=== PATIENT | male | born 1970 | race Caucasian/White ===

== ENCOUNTER 2016-05-12 11:53 | Emergency (ER) | payer OTHER ==
[2016-05-12 12:29] VITALS: BP 132/75
[2016-05-12] MEDS ORDERED: DIPH/PERTUSS(ACELL)/TETANUS VAC/PF 0.5 ML SYR (>=10YO) IM ONE (12:41)
--- NOTE | 2016-05-12 12:44 | ER Document Report ---
ED Medical Screen (RME) - General Stated Complaint: CUT FINGER Mode of Arrival: Ambulatory Information source: Patient Notes: 45 y/o M presents to ED c/o left index finger laceration. States was cutting meat last night when he accidentally cut his finger. States unknown last tetanus vaccination. No active bleeding. I have greeted and performed a rapid initial assessment of this patient. A comprehensive ED assessment and evaluation of the patient, analysis of test results and completion of the medical decision making process will be conducted by additional ED providers. TRAVEL OUTSIDE OF THE [place] IN LAST 30 DAYS: No - Related Data Allergies/Adverse Reactions: No Known Allergies Allergy (Verified 05/12/16 12:42) Past Medical History - Social History Frequency of alcohol use: Occasional Drug Abuse: None Renal/ Medical History: Denies: Hx Peritoneal Dialysis Physical Exam - Vital signs Vitals: Temp Pulse Resp BP Pulse Ox 98.0 F 84 18 132/75 H 97 05/12/16 12:27 05/12/16 12:05/12/16 12:05/12/16 12:27 05/12/16 12:27 - General General appearance: Appears well, Alert In distress: None Course - Vital Signs Vital signs: Temp Pulse Resp BP Pulse Ox 98.0 F 84 18 132/75 H 97 05/12/16 12:27 05/12/16 12:27 05/12/16 12:27 05/12/16 12:27 05/12/16 12:27
--- NOTE | 2016-05-12 13:14 | ER Document Report ---
ED Hand/Wrist Injury - General Chief Complaint: Laceration Stated Complaint: CUT FINGER Time seen by provider: 13:09 Mode of Arrival: Ambulatory Information source: Patient Notes: 45-year-old male presents to ED for left index finger avulsion to the tip of his finger. Taking was cutting meat last night when he accidentally cut his finger. He states he had not had a tetanus shot in a long time one was given in [facility]. He states he would not come but his drove him in here TRAVEL OUTSIDE OF THE [place] IN LAST 30 DAYS: No - HPI Injury to: Index finger Onset: Yesterday Where: Home, Indoors Timing: Still present Quality of pain: Sharp Severity: Moderate Pain Level: 4 Context: Other - Avulsion to tip of left index finger - Related Data Allergies/Adverse Reactions: No Known Allergies Allergy (Verified 05/12/16 12:42) Past Medical History - General Information source: Patient - Social History Smoking Status: Never Smoker Frequency of alcohol use: Occasional Drug Abuse: None Lives with: Family Family History: Arthritis, CAD, DM, Hyperlipidemia, Hypertension, Malignancy Patient has suicidal ideation: No Patient has homicidal ideation: No - Past Medical History Cardiac Medical History: Reports: Hx Hypertension Pulmonary Medical History: Reports: None EENT Medical History: Reports: None Neurological Medical History: Reports: None Endocrine Medical History: Reports: None Renal/ Medical History: Reports: Hx Kidney Stones Malignancy Medical History: Reports None GI Medical History: Reports: Hx Colonoscopy - With second colonoscopy to stop bleeding after a polypectomy Musculoskeltal Medical History: Reports Hx Arthritis Skin Medical History: Reports None, Reports Other - rosacea Psychiatric Medical History: Reports: None Traumatic Medical History: Reports: None Infectious Medical History: Reports: None Surgical Hx: Negative Past Surgical History: Reports: None - Immunizations Immunizations up to date: Yes Hx Diphtheria, Pertussis, Tetanus Vaccination: Yes Review of Systems - Review of Systems Constitutional: No symptoms reported EENT: No symptoms reported Cardiovascular: No symptoms reported Respiratory: No symptoms reported Gastrointestinal: No symptoms reported Genitourinary: No symptoms reported Male Genitourinary: No symptoms reported Musculoskeletal: No symptoms reported Skin: Other - Avulsion to the tip of the left index finger for a superficial Hematologic/Lymphatic: No symptoms reported Neurological/Psychological: No symptoms reported Physical Exam - Vital signs Vitals: Temp Pulse Resp BP Pulse Ox 98.0 F 84 18 132/75 H 97 05/12/16 12:27 05/12/16 12:27 05/12/16 12:27 05/12/16 12:27 05/12/16 12:27 Interpretation: Normal - General General appearance: Appears well, Alert - HEENT Head: Normocephalic, Atraumatic Eyes: Normal Pupils: PERRL - Respiratory Respiratory status: No respiratory distress Chest status: Nontender Breath sounds: Normal Chest palpation: Normal - Cardiovascular Rhythm: Regular Heart sounds: Normal auscultation Murmur: No - Abdominal Inspection: Normal Distension: No distension Bowel sounds: Normal Tenderness: Nontender Organomegaly: No organomegaly - Back Back: Normal, Nontender - Extremities General upper extremity: Normal inspection, Nontender, Normal color, Normal ROM , Normal temperature General lower extremity: Normal inspection, Nontender, Normal color, Normal ROM , Normal temperature, Normal weight bearing. No: Ben's sign - Neurological Neuro grossly intact: Yes Cognition: Normal Orientation: AAOx4 Bryon Coma Scale Eye Opening: Spontaneous Bryon Coma Scale Verbal: Oriented Bryon Coma Scale Motor: Obeys Commands Bryon Coma Scale Total: 15 Speech: Normal Motor strength normal: LUE, RUE, LLE, RLE Sensory: Normal - Psychological Associated symptoms: Normal affect, Normal mood - Skin Skin Temperature: Warm Skin Moisture: Dry Skin Color: Normal Location of irregularity: Extremities - Superficial avulsion injury to tip of left index finger Irregularity with: Tenderness Course - Re-evaluation Re-evalutation: 05/12/16 13:14 Finger cleaned well with soap and water and run underwater for several minutes. The finger was then patted dry and bacitracin applied with a dressing and a protective finger splint. Patient states he is on Ultram and ibuprofen and Neurontin and does not need pain medicine at this time. - Vital Signs Vital signs: Temp Pulse Resp BP Pulse Ox 98.0 F 84 18 132/75 H 97 05/12/16 12:27 05/12/16 12:27 05/12/16 12:27 05/12/16 12:27 05/12/16 12:27 Procedures - Immobilization Left Finger 2nd digit Time completed: 13:21 Immobilizer type: Finger protection Performed by: PCT Post-Proc Neuro Vasc Exam: Normal Alignment checked and good: Yes Discharge - Discharge Clinical Impression: Avulsion of skin of finger Qualifiers: Encounter type: initial encounter Qualified Code(s): S61.209A - Unspecified open wound of unspecified finger without damage to nail, initial encounter Condition: Stable Disposition: HOME, SELF-CARE Instructions: Family Physicians / Practices Additional Instructions: Avulsion Injury You have an avulsion injury -- a loss of skin which can't be helped by suturing. When large, these injuries can require skin grafting. Smaller defects or shallow avulsions usually heal well with dressings. Keep the dressing clean and dry. If the bandage becomes wet, remove it, blot the area dry, and apply a fresh dressing. Change the dressings every day. Complete healing may take anywhere from 10 days to two months. The healing time depends on the size and depth of the avulsion and on the amount of crushing of underlying tissues. Re-examination by the physician is often necessary. If any signs of infection occur (swelling, redness, increasing tenderness, red streaks, profuse purulent drainage from the avulsion, tender lumps in the armpit or groin above the avulsion, or fever), see your doctor immediately. SOAP CLEANSING: Gently wash the wound daily using a mild soap (like Ivory, Phisoderm, Neutrogena). Use warm water, rubbing gently until all debris, ooze, and crusting have been washed from the wound. Allow to dry briefly (about 10 minutes) after cleaning. Repeat this cleansing at least three times a day for the first two days and then once or twice a day. ANTIBIOTIC OINTMENT PROTECTION: Your wounds are such that dressing them is not practical or optional. After cleansing, you should apply a thin coating of antibiotic ointment ( Bacitracin, not Neosporin) to the wounds at least three times daily. This lessens infection risk, and may decrease the amount of scarring. Use a q-tip or dull butter knife, not your finger, to apply this ointment. Any debris or ooze which builds up in the ointment should be gently rubbed off with a sterile gauze pad. Harder crusting may need to be gently scrubbed off with a clean wash cloth with soap and warm water, perhaps applying a warm, wet wash cloth to the wound for ten minutes first. Development of redness, severe itching, or blistering may mean allergy to the ointment. See the doctor. TETANUS IMMUNIZATION GIVEN: You have been given an immunization against tetanus. Please record this in your records. In general, a booster is needed only once every 10 years. The tetanus shot protects against tetanus or "lockjaw," which is a complication of certain wound infections (the tetanus shot cannot protect against the actual infection). The immunization site may become warm and red due to local reaction. If this occurs, apply warm compresses and take aspirin or ibuprofen to reduce inflammation and discomfort. Return for evaluation if the reaction becomes severe. FOLLOW-UP CARE: If you have been referred to a physician for follow-up care, call the physician s office for an appointment as you were instructed or within the next two days. If you experience worsening or a significant change in your symptoms, notify the physician immediately or return to the Emergency Department at any time for re-evaluation. Forms: Elevated Blood Pressure
== END 2016-05-12 13:27 | disposition home or self-care (01) ==
LOC: ER 11:53
DX: S61.211A Laceration without foreign body of left index finger without damage to nail, initial encounter (principal); W45.8XXA Other foreign body or object entering through skin, initial encounter; Y93.G1 Activity, food preparation and clean up; Y92.009 Unspecified place in unspecified non-institutional (private) residence as the place of occurrence of the external cause; Z23 Encounter for immunization; I10 Essential (primary) hypertension
CPT/HCPCS: 90471; 90715; 99282

== ENCOUNTER 2016-06-07 15:39 | Emergency (ER) | payer OTHER ==
[2016-06-07] MEDS ORDERED: NITROGLYCERIN/D5W 50 MG/250 ML RTUINJ IV ONE (16:01)
[2016-06-07] MEDS ORDERED: ASPIRIN 81 MG TABLET, CHEWABLE PO ONE (16:08)
[2016-06-07] MEDS ORDERED: NITROGLYCERIN/D5W 250 ML IV PRN (16:08)
[2016-06-07 16:18] LABS: ABSOLUTE BASOPHILS # (AUTO) 0.1 10^3/uL (0.0-0.2); ABSOLUTE EOSINOPHILS # (AUTO) 0.4 10^3/uL (0.0-0.6); ABSOLUTE LYMPHOCYTES (AUTO) 2.8 10^3/uL (0.5-4.7); ABSOLUTE NEUT (AUTO) 7.2 10^3/uL (1.7-8.2); BASOPHILS % (AUTO) 0.7 % (0-2); EOSINOPHILS % (AUTO) 3.5 % (0-6); HEMATOCRIT 48.9 % (37.9-51.0); HEMOGLOBIN 16.5 g/dL (13.5-17.0); HGB HCT DIFFERENCE 0.6; LYMPHOCYTES % (AUTO) 24.7 % (13-45); MEAN CORPUSCULAR HEMOGLOBIN 29.9 pg (27.0-33.4); MEAN CORPUSCULAR HGB CONC 33.8 g/dL (32.0-36.0); MEAN CORPUSCULAR VOLUME 89 fl (80-97); MONOCYTES % (AUTO) 8.6 % (3-13); RED BLOOD COUNT 5.53 10^6/uL (4.35-5.55); RED CELL DISTRIBUTION WIDTH 13.2 % (11.5-14.0); SEGMENTED NEUTROPHILS % (AUTO) 62.5 % (42-78); WHITE BLOOD COUNT 11.4 10^3/uL (4.0-10.5)
[2016-06-07] MEDS ORDERED: HEPARIN SOD (PORCINE) 1,000 UNIT/ML 10 ML VIAL IV ONE (16:21)
[2016-06-07] MEDS ORDERED: HEPARIN SODIUM,PORCINE/D5W 250 ML IV PRN (16:21)
[2016-06-07] MEDS ORDERED: METOPROLOL TARTRATE PF/INJ 5 MG/5 ML SDV IV ONE (16:24)
[2016-06-07 16:26] LABS: PROTHROMBIN TIME 12.4 SEC (11.4-15.4)
--- NOTE | 2016-06-07 16:48 | ER Document Report ---
ED Cardiac - General Chief Complaint: Chest Pain Stated Complaint: CHEST PAIN Time seen by provider: 15:50 Mode of Arrival: Ambulatory Information source: Patient, Relative - Patient's accompanied by his Notes: This is a 45-year-old man with a history of hypertension in the past (currently off blood pressure medicine) who presents to the emergency room with retrosternal chest pressure radiating down the left arm. The patient states the pain first started at 4 AM waking the medicine. He normally wakes at 5 AM. He states that the pain had resolved by the time he left for work (in [employer]) at approximately 6 PM. He states while he was in [employer] at work, he the pain started again at 9 AM. The pain seems to come and go. He left work early today and on the drive home the pain got gradually worse. Patient states that by the time he got to [place], his pain was 8 out of 10. The patient's reports that he appeared pale, diaphoretic on arrival home. The patient came immediately to the ER. The patient states that the pain gradually eased up by itself and was 3 out of 10 at the time of the first EKG. TRAVEL OUTSIDE OF THE [place] IN LAST 30 DAYS: No - HPI Patient complains to provider of: Chest pain Use of: denies: Alcohol, Amphetamines, Bath salts, Caffeine, Cocaine, Decongestants, Other Was the onset of pain: Sudden Is the pain a: New problem Chest pain location: Substernal Quality of pain: Dull Chest pain radiation location: Left arm Severity now: Mild Severity at worst: Severe Pain level currently: 1 Chest pain precipitating factors: Mental Exertion/Stress Cardiac risk factors: Hypertension Positive cardiac history: No Associated symptoms: Diaphoresis, Shortness of breath Exacerbated by: Emotional stress Relieved by: Rest Similar symptoms previously: No Recently seen / treated by doctor: No - Related Data Allergies/Adverse Reactions: No Known Allergies Allergy (Verified 05/12/16 12:42) Past Medical History - General Information source: Patient - Social History Smoking Status: Never Smoker Cigarette use (# per day): No Chew tobacco use (# tins/day): No Smoking Education Provided: No Frequency of alcohol use: None Drug Abuse: None Lives with: Family Family History: Arthritis, CAD, DM, Hyperlipidemia, Hypertension, Malignancy Patient has suicidal ideation: No Patient has homicidal ideation: No - Past Medical History Cardiac Medical History: Reports: Hx Hypertension Pulmonary Medical History: Reports: None EENT Medical History: Reports: None Neurological Medical History: Reports: None Endocrine Medical History: Reports: None Renal/ Medical History: Reports: Hx Kidney Stones. Denies: Hx Peritoneal Dialysis Malignancy Medical History: Reports None GI Medical History: Reports: Hx Colonoscopy - With second colonoscopy to stop bleeding after a polypectomy Musculoskeltal Medical History: Reports Hx Arthritis Skin Medical History: Reports None Psychiatric Medical History: Reports: None Traumatic Medical History: Reports: None Infectious Medical History: Reports: None Surgical Hx: Negative - Immunizations Immunizations up to date: Yes Hx Diphtheria, Pertussis, Tetanus Vaccination: Yes Review of Systems - Review of Systems Constitutional: denies: Chills, Fever EENT: No symptoms reported Cardiovascular: See HPI Respiratory: No symptoms reported Gastrointestinal: No symptoms reported Genitourinary: No symptoms reported Male Genitourinary: No symptoms reported Musculoskeletal: No symptoms reported Skin: No symptoms reported Hematologic/Lymphatic: No symptoms reported Neurological/Psychological: No symptoms reported Physical Exam - Vital signs Vitals: Resp Pulse Ox 15 100 06/07/16 15:55 06/07/16 15:55 Notes: Physical exam: GENERAL: 45-year-old man, alert and oriented 3, complains of pain that is 1 out of 10 at this point. HEAD: Atraumatic, normocephalic. EYES: Pupils equal round and reactive to light, extraocular movements intact, sclera anicteric, conjunctiva are normal. ENT: TMs normal, nares patent, oropharynx clear without exudates. Moist mucous membranes. NECK: Normal range of motion, supple without lymphadenopathy or JVD. LUNGS: Breath sounds clear to auscultation bilaterally and equal. No wheezes rales or rhonchi. HEART: Regular rate and rhythm without murmurs, rubs or gallops. ABDOMEN: Soft, normoactive bowel sounds. No tenderness to palpation. No guarding, no rebound. No masses appreciated. EXTREMITIES: Normal range of motion, no pitting or edema. No clubbing or cyanosis. NEUROLOGICAL: Cranial nerves II through XII grossly intact. Normal speech, normal gait. PSYCH: Normal mood, normal affect. SKIN: Warm, Dry, normal turgor, no rashes or lesions noted. Course - Re-evaluation Re-evalutation: 1600: Cardiac and actions connected and vitamin. The EKG shows sinus rhythm at a ventricular rate of 94. There is ST elevations in aVR and ST depressions in V3, V4, V5, V6. The patient does not meet STEMI criteria at this point but this EKG is concerning for a very proximal LAD lesion or potentially left main lesion. I discussed case with Dr. Mcgill who was willing to accept the patient. The plan is for air travel to [place]. Patient is placed on IV nitroglycerin for a blood pressure of 175/111 He was given aspirin IV metoprolol given IV heparin started I have discussed the issues with the patient and his were are agreeable to transfer. Repeat EKG at 1617 shows normal sinus rhythm with a ventricular rate of 91, there seems to be progression of disease with worsening ST depression anteriorly , hyperacute T waves in V2 16:46 - Vital Signs Vital signs: Temp Pulse Resp BP Pulse Ox 19 136/88 H 98 06/07/16 17:06 06/07/16 17:06 06/07/16 17:06 - Laboratory Result Diagrams: 06/07/16 16:05 06/07/16 16:50 Laboratory results interpreted by me: 06/07/16 06/07/16 16:05 16:50 WBC 11.4 H Creatine Kinase 184 H - Diagnostic Test Radiology reviewed: Image reviewed, Reports reviewed Critical Care Note - Critical Care Note Total time excluding time spent on procedures (mins): 60 Discharge - Discharge Clinical Impression: acute [facility] Condition: Serious Disposition: [facility] Referrals: ZACK JULIAN MD [Primary Care Provider] - Follow up as needed
[2016-06-07 17:22] LABS: ALANINE AMINOTRANSFERASE 49 U/L (21-72); ALBUMIN 4.3 g/dL (3.5-5.0); ALKALINE PHOSPHATASE 79 U/L (38-126); ANION GAP 10 (5-19); ASPARTATE AMINO TRANSFERASE 30 U/L (17-59); BILIRUBIN,TOTAL 0.6 mg/dL (0.2-1.3); BLOOD UREA NITROGEN 20 mg/dL (7-20); CALCIUM 9.7 mg/dL (8.4-10.2); CARBON DIOXIDE 29 mmol/L (22-30); CHLORIDE 102 mmol/L (98-107); CREATINE KINASE 184 U/L (55-170); CREATININE RESULT 1.05 mg/dL (0.52-1.25); GLUCOSE 104 mg/dL (75-110); POTASSIUM 4.5 mmol/L (3.6-5.0); SODIUM 140.8 mmol/L (137-145); TOTAL PROTEIN 7.8 g/dL (6.3-8.2)
[2016-06-07 17:25] VITALS: BP 136/88
[2016-06-07 17:34] LABS: CREATINE KINASE MB 2.16 ng/mL (<4.55)
[2016-06-07 17:40] LABS: TROPONIN I 0.214 ng/mL
--- NOTE | 2016-06-07 18:03 | EKG REPORT ---
SEVERITY:- NORMAL ECG - SINUS RHYTHM : Confirmed by: Ángela Wilson 07-Jun-2016 18:01:13
--- NOTE | 2016-06-07 18:03 | EKG REPORT ---
SEVERITY:- ABNORMAL ECG - SINUS RHYTHM REPOL ABNRM SUGGESTS ISCHEMIA, DIFFUSE LEADS : Confirmed by: Ángela Wilson 07-Jun-2016 18:01:20
--- NOTE | 2016-06-07 18:03 | EKG REPORT ---
SEVERITY:- ABNORMAL ECG - SINUS RHYTHM NONSPECIFIC REPOL ABNORMALITY, DIFFUSE LEADS : Confirmed by: Ángela Wilson 07-Jun-2016 18:01:28
== END 2016-06-07 17:31 | disposition short-term general hospital (02) ==
LOC: ER 15:39
DX: I21.3 ST elevation (STEMI) myocardial infarction of unspecified site (principal); I10 Essential (primary) hypertension; R07.89 Other chest pain; R61 Generalized hyperhidrosis; R06.02 Shortness of breath; Z82.49 Family history of ischemic heart disease and other diseases of the circulatory system
CPT/HCPCS: 93005; 99291; 96374; 96375; 36415; 82553; 82550; 85025; 85610; 85730; 80053; 84484; 71010; 93010; J1644; J3490

== ENCOUNTER 2016-10-07 11:08 | Emergency (ER) | payer OTHER ==
--- NOTE | 2016-10-07 13:08 | ER Document Report ---
ED Medical Screen (RME) - General Chief Complaint: Productive Cough Stated Complaint: SPITTING UP BLOOD Time Seen by Provider: 10/07/16 12:59 Mode of Arrival: Ambulatory Information source: Patient TRAVEL OUTSIDE OF THE [place] IN LAST 30 DAYS: No - HPI Patient complains to provider of: Hemoptysis Onset: This morning Notes: 10/07/16 13:06 46-year-old male with a history of hypertension and GA with stent placement 2 back in May 2016, currently on [employer], recent trip to [employer] in [place], developed cold-like symptoms over the last few days, with fever, yellowish colored phlegm, this morning he started to notice bright red blood in his phlegm as well, he denies any chest pain or shortness of breath, he has been taking Tylenol Cold and flu, DayQuil and Robitussin for his symptoms, also has a history of vasovagal syncope and had a near syncopal episode in the emergency waiting room when he saw his own blood - Related Data Allergies/Adverse Reactions: No Known Allergies Allergy (Verified 10/07/16 11:13) Past Medical History - Past Medical History Cardiac Medical History: Reports: Hx Hypertension Renal/ Medical History: Reports: Hx Kidney Stones. Denies: Hx Peritoneal Dialysis GI Medical History: Reports: Hx Colonoscopy - With second colonoscopy to stop bleeding after a polypectomy Musculoskeltal Medical History: Reports Hx Arthritis - Immunizations Immunizations up to date: Yes Hx Diphtheria, Pertussis, Tetanus Vaccination: Yes Physical Exam - Vital signs Vitals: Temp Pulse Resp BP Pulse Ox 98.3 F 76 18 134/88 H 96 10/07/16 11:13 10/07/16 11:13 10/07/16 11:13 10/07/16 11:13 10/07/16 11:13 Course - Vital Signs Vital signs: Temp Pulse Resp BP Pulse Ox 98.3 F 76 18 134/88 H 96 10/07/16 11:13 10/07/16 11:13 10/07/16 11:13 10/07/16 11:13 10/07/16 11:13
[2016-10-07 13:25] LABS: ABSOLUTE EOSINOPHILS # (AUTO) 0.3 10^3/uL (0.0-0.6); ABSOLUTE LYMPHOCYTES (AUTO) 1.4 10^3/uL (0.5-4.7); ABSOLUTE MONOCYTES (AUTO) 1.4 10^3/uL (0.1-1.4); ABSOLUTE NEUT (AUTO) 11.6 10^3/uL (1.7-8.2); BASOPHILS % (AUTO) 0.3 % (0-2); EOSINOPHILS % (AUTO) 1.7 % (0-6); HEMATOCRIT 48.4 % (37.9-51.0); HEMOGLOBIN 16.1 g/dL (13.5-17.0); HGB HCT DIFFERENCE -0.1; LYMPHOCYTES % (AUTO) 9.7 % (13-45); MEAN CORPUSCULAR HEMOGLOBIN 29.6 pg (27.0-33.4); MEAN CORPUSCULAR HGB CONC 33.2 g/dL (32.0-36.0); MEAN CORPUSCULAR VOLUME 89 fl (80-97); MONOCYTES % (AUTO) 9.2 % (3-13); RED BLOOD COUNT 5.43 10^6/uL (4.35-5.55); RED CELL DISTRIBUTION WIDTH 13.5 % (11.5-14.0); SEGMENTED NEUTROPHILS % (AUTO) 79.1 % (42-78); WHITE BLOOD COUNT 14.7 10^3/uL (4.0-10.5)
[2016-10-07 13:32] LABS: PARTIAL THROMBOPLASTIN TIME 26.1 SEC (23.5-35.8); PROTHROMBIN TIME 12.4 SEC (11.4-15.4)
--- NOTE | 2016-10-07 13:33 | RADIOLOGY REPORT (SQ) ---
EXAM DESCRIPTION: CHEST PA/LAT COMPLETED DATE/TIME: 10/07/2016 1:26 pm REASON FOR STUDY: cough COMPARISON: 06/07/2016. EXAM PARAMETERS: NUMBER OF VIEWS: two views TECHNIQUE: Digital Frontal and Lateral radiographic views of the chest acquired. RADIATION DOSE: NA LIMITATIONS: none FINDINGS: LUNGS AND PLEURA: No opacities, masses or pneumothorax. No pleural effusion. MEDIASTINUM AND HILAR STRUCTURES: No masses or contour abnormalities. HEART AND VASCULAR STRUCTURES: Heart normal size. No evidence for failure. BONES: No acute findings. HARDWARE: None in the chest. OTHER: No other significant finding. IMPRESSION: NO SIGNIFICANT RADIOGRAPHIC FINDING IN THE CHEST. TECHNICAL DOCUMENTATION: JOB ID: [id number] [employer] All Rights Reserved
[2016-10-07 13:54] LABS: ALANINE AMINOTRANSFERASE 228 U/L (21-72); ALKALINE PHOSPHATASE 139 U/L (38-126); ANION GAP 11 (5-19); ASPARTATE AMINO TRANSFERASE 99 U/L (17-59); BILIRUBIN,DIRECT 0.4 mg/dL (0.0-0.4); BILIRUBIN,TOTAL 1.6 mg/dL (0.2-1.3); BLOOD UREA NITROGEN 9 mg/dL (7-20); CALCIUM 9.5 mg/dL (8.4-10.2); CARBON DIOXIDE 28 mmol/L (22-30); CHLORIDE 103 mmol/L (98-107); CREATININE RESULT 0.82 mg/dL (0.52-1.25); GLUCOSE 112 mg/dL (75-110); TOTAL PROTEIN 7.3 g/dL (6.3-8.2)
--- NOTE | 2016-10-07 14:21 | ER Document Report ---
ED General <VIVIANA JO - Last Filed: 10/07/16 14:22> - General Mode of Arrival: Ambulatory Information source: Patient TRAVEL OUTSIDE OF THE [place] IN LAST 30 DAYS: No - HPI Patient complains to provider of: Hemoptysis Onset: This morning Associated symptoms: Other - see notes above <CHRIS GARCIA - Last Filed: 10/07/16 14:38> - General Chief Complaint: Productive Cough Stated Complaint: SPITTING UP BLOOD Time Seen by Provider: 10/07/16 12:59 Notes: 46 year old male with history of hypertension presents to the ED complaining of hemoptysis and nose bleed that started this morning. Patient reports that he is recovering from cold-like symptoms and has a productive cough with yellow sputum for several days and fever that started last night. Patient began coughing up bright red blood earlier this morning. Patient denies chest pain or shortness of breath. Patient has been using DayQuil and Robitussum for the last several days. Patient is also on Effient. Patient is taking Metoprolol, atorvastatin, and gabapentin. (CHRIS GARCIA) - Related Data Allergies/Adverse Reactions: No Known Allergies Allergy (Verified 10/07/16 11:13) Past Medical History - General Information source: Patient - Social History Smoking Status: Unknown if Ever Smoked Family History: Arthritis, CAD, DM, Hyperlipidemia, Hypertension, Malignancy Patient has suicidal ideation: No Patient has homicidal ideation: No - Past Medical History Cardiac Medical History: Reports: Hx Heart Attack, Hx Hypertension Renal/ Medical History: Reports: Hx Kidney Stones. Denies: Hx Peritoneal Dialysis GI Medical History: Reports: Hx Colonoscopy - With second colonoscopy to stop bleeding after a polypectomy Musculoskeltal Medical History: Reports Hx Arthritis Past Surgical History: Reports: Hx Cardiac Catheterization, Hx Coronary Stent - may 2016 x2, Hx Vascular Surgery - cardiac stent x2 - Immunizations Immunizations up to date: Yes Hx Diphtheria, Pertussis, Tetanus Vaccination: Yes <CHRIS GARCIA - Last Filed: 10/07/16 14:38> Review of Systems - Review of Systems Constitutional: See HPI, Fever - last night EENT: See HPI, Other - nose bleed Cardiovascular: No symptoms reported. denies: Chest pain Respiratory: See HPI, Cough, Hemoptysis, Sputum - yellow. denies: Short of breath Gastrointestinal: No symptoms reported Genitourinary: No symptoms reported Male Genitourinary: No symptoms reported Musculoskeletal: No symptoms reported Skin: No symptoms reported Hematologic/Lymphatic: No symptoms reported Neurological/Psychological: No symptoms reported -: Yes All other systems reviewed and negative <CHRIS GARCIA - Last Filed: 10/07/16 14:38> Physical Exam - General General appearance: Alert In distress: None - HEENT Head: Normocephalic, Atraumatic Eyes: Normal Extraocular movements intact: Yes Pupils: PERRL Nasal: Other - There is a red area indicative of a previous bleed to the inside of the left nasal septum. No active bleeding. Right nostril is mildly hyperemic. Nasal congestion. - Respiratory Respiratory status: No respiratory distress Breath sounds: Nonproductive cough, Rhonchi - minimal - Cardiovascular Rhythm: Regular Heart sounds: Normal auscultation - Abdominal Inspection: Normal - Back Back: Normal - Extremities General upper extremity: Normal inspection, Normal ROM General lower extremity: Normal inspection, Normal ROM - Neurological Neuro grossly intact: Yes - Psychological Associated symptoms: Normal affect, Normal mood - Skin Skin Temperature: Warm Skin Moisture: Dry Skin Color: Normal <CHRIS GARCIA - Last Filed: 10/07/16 14:38> - Vital signs Vitals: Temp Pulse Resp BP Pulse Ox 98.3 F 76 18 134/88 H 96 10/07/16 11:13 10/07/16 11:13 10/07/16 11:13 10/07/16 11:13 10/07/16 11:13 Course - Laboratory Result Diagrams: 10/07/16 13:10 10/07/16 13:10 <VIVIANA JO - Last Filed: 10/07/16 14:22> - Laboratory Result Diagrams: 10/07/16 13:10 10/07/16 13:10 <RADHACHRIS - Last Filed: 10/07/16 14:38> - Vital Signs Vital signs: Temp Pulse Resp BP Pulse Ox 98.3 F 76 18 134/88 H 96 10/07/16 11:13 10/07/16 11:13 10/07/16 11:13 10/07/16 11:13 10/07/16 11:13 - Laboratory Laboratory results interpreted by me: 10/07/16 10/07/16 13:10 13:10 WBC 14.7 H Seg Neutrophils % 79.1 H Lymphocytes % 9.7 L Absolute Neutrophils 11.6 H Glucose 112 H Total Bilirubin 1.6 H AST 99 H ALT 228 H Alkaline Phosphatase 139 H Discharge <VIVIANA JO - Last Filed: 10/07/16 14:22> <CHRIS GARCIA - Last Filed: 10/07/16 14:38> - Discharge Clinical Impression: Bronchitis, Anterior epistaxis, Hemoptysis, Elevated liver enzymes Leukocytosis Qualifiers: Leukocytosis type: unspecified Qualified Code(s): D72.829 - Elevated white blood cell count, unspecified Additional Instructions: Bronchitis You have acute bronchitis. This disease is an infection or inflammation of the air passageways in your lungs. Symptoms usually include cough, low grade fever, shortness of breath, and wheezing. The cough usually persists for a couple of weeks. Most cases of bronchitis get better without antibiotics. We prescribe antibiotics when we believe bacteria are damaging your airways, or if there's high risk the bronchitis will worsen into pneumonia. Increase your fluid intake. A cool mist humidifier may make your lungs more comfortable. An expectorant (cough medicine that loosens phlegm) can help. If you smoke, STOP!!! Recovery from bronchitis can be somewhat slow, but you should see improvement within a day or two. Repeated episodes of bronchitis may result in lung damage -- for example, chronic bronchitis, recurrent pneumonias, or emphysema. Call the doctor if you develop increasing fever, shortness of breath, chest pain, bloody sputum, or otherwise worsen. If you have not improved at all after several days, contact the physician. Hemoptysis: Hemoptysis (coughing up blood) can occur with many different diseases. Most commonly, it's due to an infection such as bronchitis. Although alarming, the presence of blood in the phlegm doesn't change the treatment of bronchitis or pneumonia. The physician has evaluated you to see if there is evidence of an underlying problem requiring further evaluation. If he has recommended further tests, you should follow up as instructed. Hemoptysis without an identifiable cause can be due to tumors or hidden infections. Return for a recheck if the blood increases greatly in amount, or if you develop shortness of breath, high fever, severe chest pain, or other alarming new symptoms. Nosebleed Instructions: There is a significant chance of re-bleeding following a nosebleed. Proper care makes this less likely. Do not touch the nose for 24 hours. Do not blow the nose forcefully for one week. After 24 hours, gently apply Vaseline ointment to both nostrils with the tip of a finger, three times a day, for one week. It's normal to have a bloody mucous discharge for a few days. If active bleeding recurs, blow all the blood from the nose, then sit quietly and pinch the nose as firmly as possible for 10 minutes. If this does not stop the bleeding, return for further care. If packing was left in the nose and it starts to come out of the nostril, either tuck it back in or cut it off. Don't pull it out. Return for recheck and removal of the packing when instructed. Persons with frequent nosebleeds should avoid aspirin (unless prescribed for another reason). Humidity in the bedroom, and petroleum jelly applied to the nostrils at night may help. Liver Function Abnormality Your evaluation has shown an abnormality of your liver function. This may not be serious, but you need further testing. Abnormal liver function can be caused by alcohol, medicines, virus infections, heart failure, tumors, gallbladder problems, and many other diseases. But sometimes "abnormal" liver enzymes are "normal" -- it's just the way your liver works and there's nothing wrong. We need to be sure. If your doctor thinks the abnormal test was caused by alcohol, medicine, or a recent virus, we may just repeat the liver enzyme test later. Often, the test shows that the elevated enzymes are back to normal. Usually no treatment is necessary, except for avoiding the cause of the liver dysfunction (such as alcohol or a specific medicine). Further testing could include an ultrasound of the liver, liver scan, or perhaps a liver biopsy in difficult cases. Call the doctor if you become increasingly yellow, vomit repeatedly, begin to bruise or bleed easily, or have worsening abdominal pain. TAKE THE MEDICATIONS PRESCRIBED. PUT VASOLINE JELLY INTO EACH NOSTRIL 3 X DAILY AND AT BEDTIME. REST. FOLLOW UP WITH YOUR DOCTOR TO FOLLOW YOUR LIVER ENZYMES. RETURN TO THE EMERGENCY ROOM IF ANY NEW OR WORSENING SYMPTOMS. Prescriptions: Azithromycin [Zithromax 250 mg Tablet] 250 mg PO ASDIR PRN #6 tablet PRN Reason: Hydrocodone/Acetaminophen [Hydrocodon-Acetaminophen 5-325] 1 each PO ASDIR PRN # 15 tablet PRN Reason: Scribe Attestation: 10/07/16 14:28 I personally performed the services described in the documentation, reviewed and edited the documentation which was dictated to the scribe in my presence, and it accurately records my words and actions. (VIVIANA JO) Scribe Documentation - Scribe Written by Constance:: Constance Mora, 10/07/2016 1438 acting as scribe for :: Selina <CHRIS GARCIA - Last Filed: 10/07/16 14:38>
[2016-10-07 14:32] VITALS: BP 121/87
== END 2016-10-07 14:38 | disposition home or self-care (01) ==
LOC: ER 11:08
DX: J40 Bronchitis, not specified as acute or chronic (principal); R04.0 Epistaxis; R04.2 Hemoptysis; R74.8 Abnormal levels of other serum enzymes; D72.829 Elevated white blood cell count, unspecified; I25.2 Old myocardial infarction; I10 Essential (primary) hypertension; Z87.442 Personal history of urinary calculi
CPT/HCPCS: 36415; 71020; 80053; 85025; 85610; 85730; 99283

== ENCOUNTER 2018-11-25 00:06 | Emergency (ER) | payer OTHER ==
[2018-11-25] MEDS ORDERED: ONDANSETRON HCL INJ/PF 4 MG/2 ML SDV IV ONE (00:43)
[2018-11-25] MEDS ORDERED: MORPHINE SULFATE 10 MG/ML INJ IV ONE (00:43)
--- NOTE | 2018-11-25 00:50 | ER Document Report ---
ED GI/ - General Chief Complaint: Abdominal Pain Stated Complaint: ABDOMINAL PAIN Time Seen by Provider: 11/25/18 00:35 Primary Care Provider: ZACK JULIAN MD [Primary Care Provider] - Follow up as needed Notes: Patient is a 48-year-old male that comes to the emergency department for chief complaint of left flank and left lower abdominal pain, symptoms started suddenly this evening with sharp pain, patient states he got nauseated but he did not vomit. He denies dysuria or hematuria, fever/chills, chest pain, or any other locations of pain. He states he had a normal bowel movement earlier today. He does have a history of kidney stones although he has not had one in 25 years. Past medical history includes hypertension, CAD with stent, chronic lower back pain on tramadol and ibuprofen. TRAVEL OUTSIDE OF THE [place] IN LAST 30 DAYS: No - Related Data Allergies/Adverse Reactions: No Known Allergies Allergy (Verified 11/25/18 00:09) Past Medical History - General Information source: Patient - Social History Smoking Status: Never Smoker Drug Abuse: None Lives with: Family Family History: Arthritis, CAD, DM, Hyperlipidemia, Hypertension, Malignancy - Past Medical History Cardiac Medical History: Reports: Hx Heart Attack, Hx Hypertension Renal/ Medical History: Reports: Hx Kidney Stones. Denies: Hx Peritoneal Dialysis GI Medical History: Reports: Hx Colonoscopy - With second colonoscopy to stop bleeding after a polypectomy Musculoskeletal Medical History: Reports Hx Arthritis Past Surgical History: Reports: Hx Cardiac Catheterization, Hx Coronary Stent - may 2016 x2, Hx Vascular Surgery - cardiac stent x2 - Immunizations Immunizations up to date: Yes Hx Diphtheria, Pertussis, Tetanus Vaccination: Yes Review of Systems - Review of Systems Constitutional: No symptoms reported EENT: No symptoms reported Cardiovascular: No symptoms reported Respiratory: No symptoms reported Gastrointestinal: See HPI Genitourinary: See HPI Male Genitourinary: No symptoms reported Musculoskeletal: See HPI Skin: No symptoms reported Hematologic/Lymphatic: No symptoms reported Neurological/Psychological: No symptoms reported Physical Exam - Vital signs Vitals: Temp Pulse Resp BP Pulse Ox 98.6 F 90 16 145/95 H 100 11/25/18 00:26 11/25/18 00:26 11/25/18 00:26 11/25/18 00:26 11/25/18 00:26 - Notes Notes: GENERAL: Patient with very mild discomfort, occasionally shifts uncomfortably HEAD: Normocephalic, atraumatic. EYES: Pupils equal, round, and reactive to light. Extraocular movements intact. ENT: Oral mucosa moist, tongue midline. Oropharynx unremarkable. Airway patent. distress. HEART: Regular rate and rhythm. No murmur ABDOMEN: Soft, non-tender. Non-distended. Bowel sounds present in all 4 quadrants. GENITOURINARY: Deferred EXTREMITIES: Moves all 4 extremities spontaneously. No edema, normal radial and dorsalis pedis pulses bilaterally. No cyanosis. BACK: no cervical, thoracic, lumbar midline tenderness. No saddle anesthesia, normal distal neurovascular exam. Moves all extremities in full range of motion. NEUROLOGICAL: Alert and oriented x3. Normal speech. Cranial nerves II through XII grossly intact. PSYCH: Normal affect, normal mood. SKIN: Warm, dry, normal turgor. No rashes or lesions noted. Course - Re-evaluation Re-evalutation: Patient looks mildly uncomfortable but he is not in severe distress. His abdo men and flank exams are unremarkable. Vital signs unremarkable without fever. CBC shows mild leukocytosis of 14,000 with elevation of neutrophils but no bandemia. Chemistry shows mild elevation of creatinine but no severe kidney failure. Unremarkable otherwise. Urinalysis does not show infection. Imaging shows punctate left ureterolithiasis at the UVJ with some obstruction. No concerning findings otherwise. On reevaluation patient is completely pain- free. Discussed findings, discussed options, discussed recommendations. Patient will be discharged with symptom management, discussed follow-up instructions and return precautions. Patient states satisfaction and agreement with plan. Stable time of discharge. - Vital Signs Vital signs: Temp Pulse Resp BP Pulse Ox 98.4 F 84 15 140/72 H 100 11/25/18 02:54 11/25/18 02:54 11/25/18 02:54 11/25/18 02:54 11/25/18 00:26 - Laboratory Result Diagrams: 11/25/18 01:45 11/25/18 01:45 Laboratory results interpreted by me: 11/25/18 11/25/18 11/25/18 01:23 01:45 01:45 WBC 14.2 H Seg Neutrophils % 79.8 H Lymphocytes % 12.0 L Absolute Neutrophils 11.3 H BUN 21 H Creatinine 1.45 H Est GFR (Non-Af Amer) 52 L Glucose 122 H Urine Blood MODERATE H Discharge - Discharge Clinical Impression: Left flank pain, Left sided abdominal pain, Ureterolithiasis Condition: Stable Disposition: HOME, SELF-CARE Additional Instructions: You are passing a small kidney stone on the left side. This is near the bladder already. YOu will most likely passed this at home. Drink plenty of fluids, take pain and nausea medication as needed, follow-up with the urology referral listed. Return if you worsen including vomiting, severe worsening pain, fever/chills, or any other concerning symptoms. [facility] [address] [place] [address] [id number] [facility] [address] [place], [place] [id number] Janki Rocha MD Doctor in [place], [place] Address: [address] [place] [address] [address], [place] [address] Prescriptions: Ondansetron [Zofran Odt 4 mg Tablet] 1 - 2 tab PO Q4H PRN #15 tab.rapdis PRN Reason: For Nausea/Vomiting Oxycodone HCl/Acetaminophen [Percocet 5-325 mg Tablet] 1 - 2 tab PO TID PRN #15 tablet PRN Reason: Referrals: ZACK JULIAN MD [Primary Care Provider] - Follow up as needed
[2018-11-25 01:52] LABS: APPEARANCE,URINE CLEAR; BILIRUBIN,URINE NEGATIVE (NEGATIVE); COLOR,URINE YELLOW; GLUCOSE, URINE NEGATIVE (NEGATIVE); KETONES,URINE NEGATIVE (NEGATIVE); LEUKOCYTE ESTERASE,URINE NEGATIVE (NEGATIVE); NITRITE,URINE NEGATIVE (NEGATIVE); PROTEIN,URINE NEGATIVE (NEGATIVE); URINE SPECIFIC GRAVITY 1.015; UROBILINOGEN,URINE NEGATIVE mg/dL (<2.0)
[2018-11-25] MEDS ORDERED: ONDANSETRON HCL INJ/PF 4 MG/2 ML SDV ONE (01:57)
--- NOTE | 2018-11-25 01:59 | RADIOLOGY REPORT (SQ) ---
CLINICAL HISTORY: left flank and left abd pain, nausea COMPARISON: None. TECHNIQUE: CT ABDOMEN PELVIS WITHOUT IV CONTRAST on 11/25/2018 12:43 AM CDT This exam was performed according to our departmental dose-optimization program, which includes automated exposure control, adjustment of the mA and/or kV according to patient size and/or use of iterative reconstruction technique. FINDINGS: Lower lungs are clear. Abdomen: The liver is normal in appearance. There is no biliary dilatation. Gallbladder is normal in appearance. The pancreas and spleen are normal in appearance. Adrenal glands are normal. There is bilateral mild renal atrophy. There is mild left hydronephrosis secondary to a punctate left UVJ calculus. Abdominal aorta is normal in course and caliber without aneurysm. There is no free air. There is no retroperitoneal adenopathy. Pelvis: There is mild distal colonic diverticulosis. Urinary bladder is unremarkable. There is no free fluid. Appendix is normal. Skeleton: There are no acute osseous findings. No suspicious bony lesions. IMPRESSION: Mildly obstructing punctate left UVJ calculus.
[2018-11-25 02:04] LABS: ABSOLUTE BASOPHILS # (AUTO) 0.1 10^3/uL (0.0-0.2); ABSOLUTE EOSINOPHILS # (AUTO) 0.3 10^3/uL (0.0-0.6); ABSOLUTE LYMPHOCYTES (AUTO) 1.7 10^3/uL (0.5-4.7); ABSOLUTE MONOCYTES (AUTO) 0.8 10^3/uL (0.1-1.4); ABSOLUTE NEUT (AUTO) 11.3 10^3/uL (1.7-8.2); BASOPHILS % (AUTO) 0.6 % (0-2); EOSINOPHILS % (AUTO) 1.9 % (0-6); HEMATOCRIT 47.3 % (37.9-51.0); HEMOGLOBIN 15.9 g/dL (13.5-17.0); MEAN CORPUSCULAR HEMOGLOBIN 29.9 pg (27.0-33.4); MEAN CORPUSCULAR HGB CONC 33.6 g/dL (32.0-36.0); MEAN CORPUSCULAR VOLUME 89 fl (80-97); MONOCYTES % (AUTO) 5.7 % (3-13); PLATELET COUNT 282 10^3/uL (150-450); RED BLOOD COUNT 5.32 10^6/uL (4.35-5.55); RED CELL DISTRIBUTION WIDTH 13.3 % (11.5-14.0); SEGMENTED NEUTROPHILS % (AUTO) 79.8 % (42-78); TOTAL CELLS COUNTED % (AUTO) 100 %; WHITE BLOOD COUNT 14.2 10^3/uL (4.0-10.5)
[2018-11-25 02:24] LABS: ALBUMIN 4.5 g/dL (3.5-5.0); ALKALINE PHOSPHATASE 99 U/L (38-126); ANION GAP 13 (5-19); ASPARTATE AMINO TRANSFERASE 26 U/L (17-59); BILIRUBIN,DIRECT 0.3 mg/dL (0.0-0.4); BILIRUBIN,TOTAL 0.6 mg/dL (0.2-1.3); BLOOD UREA NITROGEN 21 mg/dL (7-20); CALCIUM 9.7 mg/dL (8.4-10.2); CARBON DIOXIDE 24 mmol/L (22-30); CHLORIDE 104 mmol/L (98-107); GLUCOSE 122 mg/dL (75-110); POTASSIUM 4.4 mmol/L (3.6-5.0); TOTAL PROTEIN 7.6 g/dL (6.3-8.2)
[2018-11-25] MEDS ORDERED: HYDROCODONE/ACETAMINOPHEN 5-325 MG (6 TAB/ER DISP) PO PRN (02:37)
[2018-11-25] MEDS ORDERED: ONDANSETRON ODT 4 MG TAB (6 TAB/ER DISP) PO PRN (02:37)
[2018-11-25 02:57] VITALS: BP 140/72
== END 2018-11-25 02:54 | disposition home or self-care (01) ==
LOC: ER 00:06
DX: N20.1 Calculus of ureter (principal); R10.32 Left lower quadrant pain; R11.0 Nausea; I10 Essential (primary) hypertension; Z87.442 Personal history of urinary calculi; I25.2 Old myocardial infarction
CPT/HCPCS: 99284; 96374; 96375; 36415; 83690; 85025; 80053; 81001; 74176; J2270; J2405